=== PATIENT | male | born 1955 | race Caucasian/White ===

== ENCOUNTER 2017-06-27 11:02 | Emergency (ER) | payer MEDICAID ==
[~2017-06-27] VITALS: Ht 180.3 cm; Wt 99.8 kg
[2017-06-27] MEDS ORDERED: DOXYCYCLINE MO100 MG ORAL (11:58)
[2017-06-27] MEDS ORDERED: KEFLEX500 MG ORAL (11:58)
[2017-06-27 13:06] VITALS: BP 158/84
--- NOTE | 2017-06-28 06:53 | Emergency Room Report ---
History of Present Illness General Chief Complaint: Lower Extremity Injury Source: Patient Present Illness HPI 61-year-old male history of diabetes presenting with left toe ulcer for 2 weeks. Patient states that he was seen and evaluated at [facility] a few weeks ago, and was given IV antibiotics, but was not discharged with any antibiotics. Patient states that he has been trying to get an appointment through his insurance with a doctor however has not been able to get one. Patient states that he has had ulcer, with some pain with walking, no purulent drainage, however has had persistent redness. Patient is denying any fever chills, chest pain shortness of breath Allergies: Coded Allergies: MORPHINE (Verified Allergy, Unknown, 06/27/17) Patient History Past Medical History: see triage record Past Surgical History: none Pertinent Family History: none Reviewed Nursing Documentation: PMH: Agreed, PSxH: Agreed Nursing Documentation-PMH Past Medical History: No History, Except For Hx Cardiac Problems: No Hx Hypertension: Yes Hx Pacemaker: No Hx Asthma: No Hx COPD: No Hx Diabetes: Yes Hx Cancer: No Hx Gastrointestinal Problems: No Hx Dialysis: No History Of Psychiatric Problem: No Hx Neurological Problems: No Hx Cerebrovascular Accident: No Hx Seizures: No Review of Systems All Other Systems: negative except mentioned in HPI Physical Exam Vital Signs Date Time Temp Pulse Resp B/P (MAP) Pulse Ox O2 Delivery O2 Flow Rate FiO2 06/27/17 11:09 98.1 71 13 167/91 95 Room Air Sp02 EP Interpretation: reviewed, normal General Appearance: normal inspection, well appearing, no apparent distress, alert, GCS 15, non-toxic Head: normocephalic, atraumatic Eyes: bilateral eye normal inspection, bilateral eye PERRL, bilateral eye EOMI ENT: normal ENT inspection, normal pharynx, normal voice, moist mucus membranes Neck: normal inspection, full range of motion, supple Respiratory: normal inspection, lungs clear, normal breath sounds, no respiratory distress, no retraction, no wheezing, speaking full sentences, chest symmetrical Cardiovascular #1: normal inspection, regular rate, rhythm, no edema, normal capillary refill Cardiovascular #2: 2+ radial (R), 2+ radial (L) Gastrointestinal: normal inspection, non tender, soft, non-distended, no guarding Genitourinary: no CVA tenderness Musculoskeletal: back normal, non-tender, other - Left big toe with blanching erythematous rash, superficial ulceration, no purulent drainage, minimal tenderness to palpation. Full range of motion Neurologic: normal inspection, alert, oriented x3, responsive, motor strength/ tone normal, sensory intact, normal gait, speech normal Psychiatric: normal inspection, judgement/insight normal, memory normal Skin: warm/dry, well hydrated, normal turgor Procedures Splinting Splinting : Consent: Verbal Location: L foot Pre-Made Type: KRIS wrap Pre-Proc Neuro Vasc Exam: normal Post-Proc Neuro Vasc Exam: normal Patient Tolerated: Well Complications: None Medical Decision Making Diagnostic Impression: Primary Impression: Diabetic ulcer of toe ER Course 61 yo male with redness/swelling to left toe for 2 weeks DDX: cellulitis /diabetic ulcer No crepitus / pain out of proportion / rapid spreading for concern for nec fasc Plan: Antibiotics Kris wrap ER course: Patient received antibiotics for cellulitis/diabetic ulcer. Remains nontoxic appearing. There has been no rapid spread of redness/swelling. Patient is able to tolerate by mouth antibiotics Disposition: Patient is to be discharged to home on PO antibiotics. Strict precautions discussed with patients on when to return to the ED including fevers, chills, rapid spread of rash, persistent rash, extreme pain to extremity, which may indicate severe illness. Patient verbalizes understanding. Patient is instructed to follow up with primary care doctor in 48 hours for wound check. Patient is also advised to see a filter worker within one week. Patient agrees with plan. Please note that this Emergency Department Report was dictated using [employer]replanter technology software, occasionally this can lead to erroneous entry secondary to interpretation by the dictation equipment. Last Vital Signs Date Time Temp Pulse Resp B/P (MAP) Pulse Ox O2 Delivery O2 Flow Rate FiO2 06/27/17 13:06 97.5 67 15 158/84 95 Room Air Disposition: HOME, SELF-CARE Condition: Stable Scripts Doxycycline Monohydrate* (DOXYCYCLINE MONOHYDRATE*) 100 Mg Capsule 100 MG ORAL Q12H, #14 CAP 0 Refills Prov: Retino,Clairose M.D. 06/27/17 Cephalexin* (KEFLEX*) 500 Mg Capsule 500 MG ORAL Q6H, #28 CAP 0 Refills Prov: Retino,Clairose M.D. 06/27/17 Referrals: [facility],REFERRING (PCP) Patient Instructions: Cellulitis Additional Instructions: Please follow up with your primary care doctor within 3 days for wound recheck Please take your prescription medication as directed. Please come back to the emergency room if you are having worsening pain, headache, chest pain, shortness of breath, or nausea or vomiting, fever and chills Federico Montana M.D. Jun 28, 2017 06:53
== END 2017-06-27 13:06 | disposition home or self-care (01) ==
LOC: EMR 12:00
DX: E11.621 Type 2 diabetes mellitus with foot ulcer (principal); L97.529 Non-pressure chronic ulcer of other part of left foot with unspecified severity; I10 Essential (primary) hypertension; Z88.6 Allergy status to analgesic agent
CPT/HCPCS: 99284

== ENCOUNTER 2020-06-01 13:20 | Emergency (ER) | payer SELFPAY ==
[~2020-06-01] VITALS: Ht 180.3 cm; Wt 99.8 kg
[~2020-06-01 13:20] MED LIST: DOXYCYCLINE MO100 MG ORAL; KEFLEX500 MG ORAL
[2020-06-01 13:45] VITALS: BP 128/68
--- NOTE | 2020-06-01 13:50 | NUR ---
ED Nurse Note: patient came in to ER via walker d/t pain on bilateral feet going on for a year that got worsen recently. Pt denies injury/trauma. pt stated "I'm starting to feel worst pain on my LT leg". Patient presented AAO x4, VSS at this time, pt has foul odor coming from his foots. Per patient, he had dressing change 4 weeks ago.
[2020-06-01] MEDS ORDERED: Piperacillin/Tazobactam 3.375 GM in NS 110 ML IVPB ONE (14:30)
[2020-06-01] MEDS ORDERED: Hydrogen Peroxide 473ml Bottle TOPIC ONE (15:17)
--- NOTE | 2020-06-01 15:30 | NUR ---
ED Nurse Note: dressing was removed from both legs, patient tolerated procedure well. Patient has big infected left foot, with strong odor.
[2020-06-01 15:36] LABS: BASOPHILS % (AUTO) 1.2 % (0.0-2.0); HEMATOCRIT 31.6 % (42.0-52.0); HEMOGLOBIN 10.1 G/DL (14.2-18.0); LYMPHOCYTES % (AUTO) 9.6 % (20.0-45.0); MEAN CORPUSCULAR VOLUME 80 FL (80-99); NEUTROPHILS % (AUTO) 78.2 % (45.0-75.0); PLATELET COUNT 255 K/UL (150-450); RED BLOOD COUNT 3.93 M/UL (4.70-6.10); RED CELL DISTRIBUTION WIDTH 15.9 % (11.6-14.8); WHITE BLOOD COUNT 12.6 K/UL (4.8-10.8)
[2020-06-01 15:38] LABS: APPEARANCE,URINE SLIGHTLY CLOUDY; BILIRUBIN, URINE NEGATIVE (NEGATIVE); COLOR,URINE PALE YELLOW; GLUCOSE, URINE (UA) NEGATIVE (NEGATIVE); KETONES,URINE NEGATIVE (NEGATIVE); LEUKOCYTE ESTERASE ,URINE NEGATIVE (NEGATIVE); NITRITE,URINE NEGATIVE (NEGATIVE); PH,URINE 5 (4.5-8.0); PROTEIN,URINE 4+ (NEGATIVE); UROBILINOGEN,URINE NORMAL MG/DL (0.0-1.0)
[2020-06-01 15:50] LABS: ANION GAP 10 mmol/L (5-15); BLOOD UREA NITROGEN 70 mg/dL (7-18); CALCIUM 9.1 MG/DL (8.5-10.1); CARBON DIOXIDE 23 MMOL/L (21-32); CHLORIDE 104 MMOL/L (98-107); CREATININE 2.1 MG/DL (0.55-1.30); SODIUM 137 MMOL/L (136-145)
[2020-06-01 15:55] LABS: ALANINE AMINOTRANSFERASE 25 U/L (12-78); ALBUMIN 2.7 G/DL (3.4-5.0); ALBUMIN/GLOBULIN RATIO 0.5 (1.0-2.7); ALKALINE PHOSPHATASE 102 U/L (46-116); ASPARTATE AMINO TRANSFERASE 18 U/L (15-37); BILIRUBIN,TOTAL 0.3 MG/DL (0.2-1.0)
--- NOTE | 2020-06-01 16:33 | Emergency Room Report ---
History of Present Illness General Chief Complaint: Pain Source: Patient (Gilbert Rogers) Present Illness HPI 64-year-old male with history of type 2 diabetes currently not controlled with any medication and chronic diabetic foot ulcers here requesting a wound clean and dressed as well as wound cultures. Patient reports that he goes [facility] and last time he went there which was 4 weeks ago and had a wound dressing and changed he did not feel like they were paying attention to and he decided not to go back. Patient also reports that he takes care of his with Parkinson's at home. I explained to patient that we need to do blood work, blood culture, wound culture and requires hospitalization as the wound on the left foot is very infected and cellulitic however patient decided to leave AGAINST MEDICAL ADVICE as did not want to stay in the hospital. Patient also refused to sign AGAINST MEDICAL ADVICE paperwork. Right leg has chronic ulceration. Foul-smelling ulceration noted left foot. Patient talks to the staff in a condescending way and after mupirocin ointment was written for him and proper wound dressing and change was explained to him he continues to complain it should never been written as he cannot change his own dressing. Patient has full judgment making his decisions at this time. (Gilbert Rogers) Allergies: Coded Allergies: MORPHINE (Verified Allergy, Unknown, 06/27/17) COVID-19 Screening Contact w/high risk pt: No Experienced COVID-19 symptoms?: No COVID-19 Testing performed [employer]: Yes - unk date per pt COVID-19 Screening: Negative COVID-19 COVID-19 Testing Source: unk source (Gilbert Rogers) Patient History Past Medical History: see triage record Past Surgical History: none Pertinent Family History: none Reviewed Nursing Documentation: PMH: Agreed; PSxH: Agreed (Gilbert Rogers) Nursing Documentation-PMH Hx Cardiac Problems: No Hx Hypertension: Yes Hx Pacemaker: No Hx Asthma: No Hx COPD: No Hx Diabetes: Yes Hx Cancer: No Hx Gastrointestinal Problems: No Hx Dialysis: No Hx Neurological Problems: No Hx Cerebrovascular Accident: No Hx Seizures: No (Gilbert Rogers) Review of Systems All Other Systems: negative except mentioned in HPI (Gilbert Rogers) Physical Exam Vital Signs Date Time Temp Pulse Resp B/P (MAP) Pulse Ox O2 Delivery O2 Flow Rate FiO2 06/01/20 13:31 98.1 88 20 128/68 (88) 96 Room Air Sp02 EP Interpretation: reviewed, normal General Appearance: alert, mild distress Head: normocephalic, atraumatic Eyes: bilateral eye normal inspection, bilateral eye PERRL ENT: hearing grossly normal, normal pharynx, no angioedema, normal voice Neck: full range of motion, supple Respiratory: chest non-tender, lungs clear, normal breath sounds, no rhonchi, speaking full sentences Cardiovascular #1: regular rate, rhythm, no edema, no murmur Gastrointestinal: normal bowel sounds, non tender, soft, non-distended, no guarding, no rebound Genitourinary: no CVA tenderness Musculoskeletal: back normal, no calf tenderness, other - Obvious deformity when a large bruising ulcer left foot and chronic ulceration of the right leg Neurologic: alert, motor strength/tone normal, oriented x3, sensory intact, responsive, speech normal Psychiatric: judgement/insight normal, memory normal, mood/affect normal, no suicidal/homicidal ideation Skin: other - Infected foot ulcer Lymphatic: no adenopathy (Gilbert Rogers) Medical Decision Making PA Attestation All diagnoses and treatment plans were reviewed and discussed with my supervising physician Dr. Andrew (Gilbert Rogers) PA Attestation I participate in the care of this patient along with ADENIKE Rice Briefly, this 64-year-old male history of diabetes and lower extremity ulcers presenting for worsening pain and swelling of the left lower extremity. Patient states he does not follow with wound care, general surgery or PMD and is no longer going to clinic. He notes worsening pain swelling and drainage from the left foot wounds. Denies fever or chills. He was receiving wound care at clinic but after an argument with his PMD there he is no longer going has not been there for the past 4 weeks. Labs show elevated white count at 12.6 with a neutrophil predominance, evidence of reduced renal function with creatinine 2.1 and BUN of 70. No evidence of urinary tract infection and coagulation studies were within normal limits. Given the purulence and the overall appearance of the foot and x-ray was obtained but did not show any retained gas. Wound and blood cultures were sent and the patient was treated with IV antibiotics. Had plan for admission however the patient refused admission at this time stating that he had family obligations including taking care of his who has Parkinson's. He states he could not stay in the hospital but would return in 2 days after he had made arrangements for his . I expressed to him the severity of his infection that it can may result in loss of limb and even . He stated that he understood but that he could not stay at the hospital at this time and that would return in 2 days. On discharge the patient refused to sign AMA paperwork stating that he was "his choice to leave" and that he did not want to sign the papers. Patient was provided with instructions as well as oral antibiotics and encouraged to return to the hospital should he change his mind regarding admission and further treatment. (Chivo Andrew MD) Diagnostic Impression: Primary Impression: Diabetic foot ulcer Additional Impression: LUIS A (acute kidney injury) ER Course 64-year-old male with history of type 2 diabetes currently not controlled with any medication and chronic diabetic foot ulcers here requesting a wound clean and dressed as well as wound cultures. Patient reports that he goes to [facility] and last time he went there which was 4 weeks ago and had a wound dressing and changed he did not feel like they were paying attention to and he decided not to go back. Patient also reports that he takes care of his with Parkinson's at home. I explained to patient that we need to do blood work, blood culture, wound culture and requires hospitalization as the wound on the left foot is very infected and cellulitic however patient decided to leave AGAINST MEDICAL ADVICE as did not want to stay in the hospital. Patient also refused to sign AGAINST MEDICAL ADVICE paperwork. Right leg has chronic ulceration. Foul-smelling ulceration noted left foot. Patient talks to the staff in a condescending way and after mupirocin ointment was written for him and proper wound dressing and change was explained to him he continues to complain it should never been written as he cannot change his own dressing. Patient has full judgment making his decisions at this time. Ddx considered but are not limited to : Cellulitis, DVT, superficial infection, abscess, gangrenous ulcer, osteomyelitis Vital signs: are WNL, pt. is afebrile H&PE are most consistent with: Diabetic foot ulcer with deformity of the foot, LUIS A ORDERS: CBC, CMP, lactic acid, blood culture, blood culture, chest x-ray bilateral foot x-ray, Keflex, Bactrim DS, Motrin ED INTERVENTIONS: Zosyn Patient certainly AGAINST MEDICAL ADVICE and did not want to be hospitalized and also refused to sign AMA paperwork patient also asked for my personal phone number and wanted my business card as he asked me to be his primary care provider . Explained to him that I cannot give any contact patient is a primary care provider patient needs to establish a new pcp and [facility] that he can contact to establish a pcp (Gilbert Rogers) Chest X-Ray Diagnostic Results Chest X-Ray Diagnostic Results : Chest X-Ray Ordered: Yes # of Views/Limited/Complete: 1 View Indication: Other EP Interpretation: Yes PA Xray: Interpretation reviewed, by supervising MD, and agrees with findings. Interpretation: no consolidation, no effusion, no pneumothorax Impression: No acute disease Electronically Signed by: Gilbert Narvaez PA-C) Other X-Ray Diagnostic Results Other X-Ray Diagnostic Results #1: X-Ray ordered: Left foot # of Views/Limited Vs Complete: 3 View Indication: Pain EP Interpretation: Yes PA Xray: Interpretation reviewed, by supervising MD, and agrees with findings. Interpretation: other - Obvious deformity of the foot with ulceration Impression: Other - Infected ulceration dorsum of left foot with obvious deformity Electronically Signed by: Gilbert Ramires PA-C Other X-Ray Diagnostic Results #2: X-Ray ordered: Right foot # of Views/Limited Vs Complete: 3 View Indication: Pain EP Interpretation: Yes PA Xray: Interpretation reviewed, by supervising MD, and agrees with findings. Interpretation: no dislocation, no soft tissue swelling, no fractures Impression: No acute disease Electronically Signed by: Gilbert Narvaez PA-C) Last Vital Signs Date Time Temp Pulse Resp B/P (MAP) Pulse Ox O2 Delivery O2 Flow Rate FiO2 06/01/20 13:45 98.1 20 128/68 96 Room Air 06/01/20 13:31 88 (Gilbert Rogers) Disposition: AGAINST MEDICAL ADVICE Condition: Serious Scripts Ibuprofen* (MOTRIN*) 600 Mg Tablet 600 MG ORAL Q6H PRN for For Pain, #30 TAB 0 Refills Prov: Gilbert Rogers 06/01/20 Mupirocin* (MUPIROCIN*) 22 Gm Oint...g. 1 APPLIC TOPIC THREE TIMES A DAY, #22 GM Prov: Gilbert Rogers 06/01/20 Trimethoprim/Sulfamethoxazole 160/800* (BACTRIM DS TABLET*) 1 Each Tablet 1 TAB ORAL TWICE A DAY for 7 Days, #14 TAB Prov: Gilbert Rogers 06/01/20 Cephalexin* (KEFLEX*) 500 Mg Capsule 500 MG ORAL EVERY 6 HOURS for 7 Days, #28 CAP Prov: Gilbert Rogers 06/01/20 Referrals: NOT [facility]OSEN [facility]/,REFERRING (PCP) Patient Instructions: Diabetes and Foot Care, Skin Ulcer Additional Instructions: Take medication as directed, follow-up with your primary care provider 1 specialist, if worsening symptoms return to the emergency Gilbert Rogers Jun 01, 2020 16:33 Chivo Andrew MD Jun 01, 2020 18:43
[2020-06-01] MEDS ORDERED: BACTRIM DS TAB1 EAC1 ORAL (16:37)
[2020-06-01] MEDS ORDERED: IBUPROFEN600 M1 ORAL (16:37)
[2020-06-01] MEDS ORDERED: CEPHALEXIN500 MG ORAL (16:37)
[2020-06-01] MEDS ORDERED: MUPIROCIN22 GM TOPIC (16:37)
--- NOTE | 2020-06-01 17:22 | NUR ---
ED Nurse Note: weat to dry dressing was applyed for both legs, patient tolerated procedure well.
--- NOTE | 2020-06-01 17:34 | Diagnostic Imaging Report ---
Indication: Foot pain Technique: 3 views left foot Comparison: none Findings: There is extensive destructive change of the midfoot and hindfoot, with apparent collapse of the anterior calcaneus, March. Carotid deformity of the foot, and extensive deformity of the midfoot bones. There is severe hammertoe deformities second through fifth digits. There is chronic appearing periosteal reaction of the second through fifth digits. Impression: Extensive deformities, as described, most likely representing Charcot changes. Underlying acute bony trauma or osteomyelitis impossible to confidently exclude. Correlate with clinical findings, consider MRI or bone scan for further characterization if clinically indicated
[2020-06-01 18:04] VITALS: BP 128/68
--- NOTE | 2020-06-01 18:04 | NUR ---
AMA: SEE AMA FORM.
--- NOTE | 2020-06-01 18:05 | NUR ---
Note patriciasalvatore in ED - 06/01/20 at 1842 by LETY ER DISCHARGE NOTE: Patient is cleared to be discharged per ERMD, pt is aox4, on room air, with stable vital signs. pt was given dc and prescription instructions, pt was able to verbalize understanding, pt id band and iv site removed without complications. pt is able to ambulate with steady gait. pt took all belongings.
--- NOTE | 2020-06-01 18:05 | NUR ---
AMA ER DISCHARGE NOTE: Patient is being discharged AMA. After ERMD explained all risks and complications patient left AMA. Patient is aox4, on room air, with stable vital signs. pt was given dc and prescription instructions, pt was able to verbalize understanding, pt id band and iv site removed without complications. pt is able to ambulate with walker. pt took all belongings.
--- NOTE | 2020-06-02 10:35 | Diagnostic Imaging Report ---
Indication: Right foot pain Technique: 3 views right foot Comparison: none Findings: There is considerable deformity of the anterior midfoot, particularly involving the middle and lateral cuneiforms and the cuboid and associated metatarsophalangeal joints. There is questionably a fracture deformity of the base of the fifth metatarsal, acuity indeterminate if real. The basis of the second third and fourth metatarsals are poorly visualized, appear deformed. There is also considerable chronic appearing periosteal reaction along the shafts of the third and fourth metatarsals. There is dorsal soft tissue swelling. Impression: Extensive acuity indeterminate deformity of the anterior midfoot, as described. Findings likely to large extent represent chronic Charcot type changes. Superimposed acute bony trauma possible to exclude. Relation with the findings is recommended, with consideration for MRI or bone scan as clinically indicated
== END 2020-06-01 18:05 | disposition left against medical advice (07) ==
LOC: EMR 13:54
DX: E11.621 Type 2 diabetes mellitus with foot ulcer (principal); N17.9 Acute kidney failure, unspecified; I10 Essential (primary) hypertension; L97.919 Non-pressure chronic ulcer of unspecified part of right lower leg with unspecified severity
CPT/HCPCS: 36415; 73620; 73630; 80053; 81003; 83605; 84484; 85025; 85610; 85730; 87040; 96365; 99284; J2543